=== PATIENT | male | born 1985 | race Caucasian/White ===

== ENCOUNTER 2023-06-16 08:15 | Outpatient (CLI) | payer MEDICAID, OTHER | END 2023-06-16 08:20 | disposition home or self-care (01) | LOC: LAB.N 08:15 | PROVIDERS: ATTEND Family Medicine | DX: L03.019 Cellulitis of unspecified finger (principal) | CPT/HCPCS: 87070; 87077; 87205 ==

== ENCOUNTER 2023-08-25 08:00 | Outpatient (CLI) | payer OTHER ==
--- NOTE | 2023-08-25 18:10 | XRAY Report ---
PROCEDURE: Hip 2 View RT INDICATIONS: RIGHT HIP PAIN TECHNIQUE: 2 view(s) of the hip were acquired. COMPARISON: None FINDINGS: Bones: No fractures or dislocations. Mild bilateral hip joint osteoarthritic changes are seen with j oint space narrowing and subchondral sclerosis. 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 No nic dence of avascular necrosis of femoral head. No suspicious bony lesions. The visualized pelvic ring appears intact. Soft tissues: No suspicious soft tissue calcifications or masses. IMPRESSION: No acute bony abnormality. Mild bilateral hip joint osteoarthritis. Mild prominence of bilateral superior femoral head neck junc tion which can be seen associated with cam-type femoral acetabular impingement. No evidence of avascu lar necrosis. Reviewed by: Hola Hameed MD on 08/25/2023 6:09 PM PST Approved by: Hola Hameed MD on 08/25/2023 6:09 PM PST Station ID: [id number]
== END 2023-08-25 23:59 | disposition home or self-care (01) ==
LOC: DI.WOS 08:00
PROVIDERS: ATTEND Orthopaedic Surgery
DX: M16.0 Bilateral primary osteoarthritis of hip (principal)